=== PATIENT | male | born 1945 | race African-American/Black ===

== ENCOUNTER 2016-08-31 04:18 | Emergency (ER) | payer OTHER ==
[~2016-08-31] VITALS: Ht 170.2 cm; Wt 68.0 kg
[~2016-08-31 04:18] MED LIST: TYLE3 PO; Z.0.UNKNOWN
[2016-08-31 04:21] VITALS: BP 102/67; PULSE 95; RESP 16; TEMP 98.6; O2SAT 95
[2016-08-31 04:43] VITALS: BP 120/71; PULSE 79; RESP 18; O2SAT 95
[2016-08-31] MEDS ORDERED: SODIUM CHLOR 0.9% 1000 ML INJ 1,000 ML IV ONE ×2 (05:00→05:15)
[2016-08-31] MEDS ORDERED: ONDANSETRON HCL 4 MG/2 ML VIAL IV ONE (05:00)
--- NOTE | 2016-08-31 05:04 | PD ---
HPI Chief Complaint: GI Complaint Time Seen by Provider: 04:49 (Nghia Flores MD) Time Seen by Provider: 08:00 (Silvia Negrete MD) Travel History International Travel<30 days: No Contact w/Intl Traveler<30days: No Traveled to known affect area: No (Nghia Flores MD) History of Present Illness HPI This 71-year-old man who presents to the emergency department claiming of nausea vomiting and dehydration. reports over the past couple days she's gotten worsening nausea, anorexia, not really eating. He's also had some cough cold symptoms. He denies any fevers or chills but his states that he had significant sweats and was having a blanket on despite of being hot outside. Patient denies any abdominal pain. No history of abdominal surgeries. No urinary complaints. He does have prostate problems and urinates frequently and sometimes has incontinence. His lites had a little bit of GI upset but not as severe as he does. No unusual or undercooked foods, no recent travel, no recent antibiotics. (Nghia Flores MD) History Past Medical History Narrative Medical Hypertension BPH (Nghia Flores MD) Social History Alcohol Use: Yes (DAILY) Tobacco Use: No (Nghia Flores MD) Allergies-Medications (Allergen,Severity, Reaction): Coded Allergies: No Known Allergies (Verified , 08/31/16) Reported Meds & Prescriptions Reported Meds & Active Scripts Active Tylenol-Codeine #3 (Acetaminophen-Codeine) 300-30 mg Tab 1 Tab PO Q6HR PRN Zofran (Ondansetron HCl) 4 Mg Tab 4 Mg PO Q8HR PRN Cipro (Ciprofloxacin HCl) 500 Mg Tab 500 Mg PO BID 7 Days (Silvia Negrete MD) Review of Systems Except as stated in HPI: all other systems reviewed are Neg (Nghia Flores MD ) Physical Exam Narrative GENERAL: Well-appearing 71-year-old man, no acute distress. SKIN: Focused skin assessment warm/dry. Decreased skin turgor. HEAD: Atraumatic. Normocephalic. EYES: Pupils equal and round. No scleral icterus. No injection or drainage. ENT: No nasal bleeding or discharge. Mucous membranes are little bit dry. NECK: Trachea midline. No JVD. CARDIOVASCULAR: Regular rate and rhythm. No murmur appreciated. RESPIRATORY: No accessory muscle use. Clear to auscultation. Breath sounds equal bilaterally. GASTROINTESTINAL: Abdomen soft with full bit no tenderness or obvious distention. MUSCULOSKELETAL: No obvious deformities. No edema. NEUROLOGICAL: Awake and alert. No obvious cranial nerve deficits. Motor grossly within normal limits. Normal speech. (Nghia Flores MD) Data Data Last Documented VS Vital Signs Date Time Temp Pulse Resp B/P Pulse Ox O2 Delivery O2 Flow Rate FiO2 08/31/16 07:11 74 116/69 96 Nasal Cannula 2 08/31/16 06:15 18 08/31/16 04:21 98.6 (Silvia Negrete MD) Orders Complete Blood Count With Diff (08/31/16 04:59) Comprehensive Metabolic Panel (08/31/16 04:59) Urinalysis - C+S If Indicated (08/31/16 04:59) Iv Access Insert/Monitor (08/31/16 04:59) Sodium Chlor 0.9% 1000 Ml Inj (Ns 1000 M (08/31/16 05:00) Ondansetron Inj (Zofran Inj) (08/31/16 05:00) Chest, Single Ap (08/31/16 ) Sodium Chlor 0.9% 1000 Ml Inj (Ns 1000 M (08/31/16 05:15) Us Abdomen Gallbladder (08/31/16 ) Urine Culture (08/31/16 08:19) Ceftriaxone Inj (Rocephin Inj) (08/31/16 08:30) Potassium Chlor 10 Meq Premix (Kcl 10 Me (08/31/16 09:00) Potassium Chloride (Kcl) (08/31/16 09:00) (Silvia Negrete MD) Labs Laboratory Tests Test 08/31/16 08/31/16 05:00 05:45 White Blood Count 2.9 TH/MM3 Red Blood Count 3.68 MIL/MM3 Hemoglobin 13.2 GM/DL Hematocrit 38.1 % Mean Corpuscular Volume 103.5 FL Mean Corpuscular Hemoglobin 35.9 PG Mean Corpuscular Hemoglobin 34.7 % Concent Red Cell Distribution Width 13.5 % Platelet Count 100 TH/MM3 Mean Platelet Volume 9.4 FL Neutrophils (%) (Auto) 32.8 % Lymphocytes (%) (Auto) 47.3 % Monocytes (%) (Auto) 19.5 % Eosinophils (%) (Auto) 0.1 % Basophils (%) (Auto) 0.3 % Neutrophils # (Auto) 0.9 TH/MM3 Lymphocytes # (Auto) 1.3 TH/MM3 Monocytes # (Auto) 0.6 TH/MM3 Eosinophils # (Auto) 0.0 TH/MM3 Basophils # (Auto) 0.0 TH/MM3 CBC Comment AUTO DIFF Differential Total Cells 100 Counted Neutrophils % (Manual) 34 % Band Neutrophils % 1 % Lymphocytes % 54 % Monocytes % 11 % Neutrophils # (Manual) 1.0 TH/MM3 Nucleated Red Blood Cells 1 /100 WBC Differential Comment FINAL DIFF MANUAL Platelet Estimate LOW Platelet Morphology Comment NORMAL Red Cell Morphology Comment NORMAL Sodium Level 132 MEQ/L Potassium Level 3.0 MEQ/L Chloride Level 93 MEQ/L Carbon Dioxide Level 24.6 MEQ/L Anion Gap 14 MEQ/L Blood Urea Nitrogen 10 MG/DL Creatinine 1.10 MG/DL Estimat Glomerular Filtration 80 ML/MIN Rate Random Glucose 108 MG/DL Calcium Level 8.1 MG/DL Total Bilirubin 0.8 MG/DL Aspartate Amino Transf 99 U/L (AST/SGOT) Alanine Aminotransferase 71 U/L (ALT/SGPT) Alkaline Phosphatase 66 U/L Total Protein 8.3 GM/DL Albumin 3.5 GM/DL Urine Color YELLOW Urine Turbidity CLEAR Urine pH 5.5 Urine Specific [place] 1.003 Urine Protein NEG mg/dL Urine Glucose (UA) NEG mg/dL Urine Ketones NEG mg/dL Urine Occult Blood NEG Urine Nitrite NEG Urine Bilirubin NEG Urine Urobilinogen LESS THAN 2.0 MG/DL Urine Leukocyte Esterase MOD Urine RBC LESS THAN 1 /hpf Urine WBC 6 /hpf Urine Squamous Epithelial <1 /hpf Cells Urine Bacteria OCC /hpf Urine Mucus FEW /lpf Microscopic Urinalysis Comment CULT NOT INDICATED (Siliva Negrete MD) Labs Laboratory Tests Test 08/31/16 05:00 White Blood Count 2.9 TH/MM3 Red Blood Count 3.68 MIL/MM3 Hemoglobin 13.2 GM/DL Hematocrit 38.1 % Mean Corpuscular Volume 103.5 FL Mean Corpuscular Hemoglobin 35.9 PG Mean Corpuscular Hemoglobin 34.7 % Concent Red Cell Distribution Width 13.5 % Platelet Count 100 TH/MM3 Mean Platelet Volume 9.4 FL Neutrophils (%) (Auto) 32.8 % Lymphocytes (%) (Auto) 47.3 % Monocytes (%) (Auto) 19.5 % Eosinophils (%) (Auto) 0.1 % Basophils (%) (Auto) 0.3 % Neutrophils # (Auto) 0.9 TH/MM3 Lymphocytes # (Auto) 1.3 TH/MM3 Monocytes # (Auto) 0.6 TH/MM3 Eosinophils # (Auto) 0.0 TH/MM3 Basophils # (Auto) 0.0 TH/MM3 CBC Comment AUTO DIFF Sodium Level 132 MEQ/L Potassium Level 3.0 MEQ/L Chloride Level 93 MEQ/L Carbon Dioxide Level 24.6 MEQ/L Anion Gap 14 MEQ/L Blood Urea Nitrogen 10 MG/DL Creatinine 1.10 MG/DL Estimat Glomerular Filtration 80 ML/MIN Rate Random Glucose 108 MG/DL Calcium Level 8.1 MG/DL Total Bilirubin 0.8 MG/DL Aspartate Amino Transf 99 U/L (AST/SGOT) Alanine Aminotransferase 71 U/L (ALT/SGPT) Alkaline Phosphatase 66 U/L Total Protein 8.3 GM/DL Albumin 3.5 GM/DL (Nghia Flores MD) [facility] Medical Decision Making Medical Screen Exam Complete: Yes Emergency Medical Condition: Yes Interpretation(s) LABS: CBC remarkable for mildly low white count, CT results bit elevated, monocytes % is elevated CMP is unremarkable UA Chest x-ray: No acute cardiopulmonary disease. Differential Diagnosis Dehydration, anorexia, infection, pneumonia, UTI, other Narrative Course Medical decision-making INITIAL: 71-year-old man presents emergent or decreased appetite nausea vomiting ongoing for couple days. He looks a little bit dehydrated. He has no abdominal pain. A little bit a cough or cold symptoms could suggest pneumonia. He also has prostate problems or could suggest UTI. We'll check labs, urine, chest x-ray, IV fluids, Zofran, reassess. (Nghia Flores MD) Medical Screen Exam Complete: No Emergency Medical Condition: No Medical Record Reviewed: No Interpretation(s) Chest x-ray no acute disease to sound the gallbladder shows a small stone but no gallbladder wall thickening or free fluid consistent with acute cholecystitis White cell count 2.9 his white cell count from March retrieved from the [facility] was 3.7 today absolute neutrophil count was 0.9 which is low UA consistent with infection with positive leukocytes and white cells Differential Diagnosis Differential diagnoses cholelithiasis dehydration nausea and vomiting urinary tract infection history of prostate cancer neutropenia Narrative Course This is a 71-year-old male patient with a past medical history of prostate cancer who presents with a 3 to four-day history of nausea and vomiting and decreased by mouth intake. Patient denies pain. States patient did not have a fever but she noted chills. No urinary symptoms reported. The patient did sign out from Dr. Fenton to review the ultrasound report and disposition patient. Ultrasound revealed a small gallstone but no signs of acute cholecystitis. White cell count 2.9. Absolute neutrophil count 0.9 which is low. Recent tree most recent WBC from [place] which was 3.7 done in March. UA consistent with infection with positive leukocytes and white cells. Patient appears comfortable but in light of the decreased absolute neutrophil count and urine consistent with infection and recent history of nausea and vomiting along with low potassium for which she received a K Jarred and by mouth potassium ordered to keep patient overnight for observation due to drop in wbc uti and gallstones in this cancer that is from the [place] where he cannot see his oncologist in the next 48 hours patient but patient refused. \ will discharge patient home on zofran tylenol # 3 and ciprofloxacin ( will avoid augmentin due to presentation of vomiting and augmentin causes GI distress ) patient signed out AMA. understands reasons to return. (Silvia Negrete MD) Diagnosis Primary Impression: Urinary tract infection Additional Impressions: Dehydration Cholelithiases History of prostate cancer Patient Instructions: Dehydration (DC), Gallstones (DC), General Instructions, Urinary Tract Infection in Men (DC) Additional Instructions: Stay well hydrated Avoid alcohol use Finish antibiotic Take Zofran as needed for nausea Take Tylenol No. 3 as needed for pain Follow-up with your oncologist at the [facility] call today for follow-up appointment Also follow-up with Gen. surgery for further evaluation of gallstones and to discuss the elective removal of the gallbladder if needed Also follow with her primary care provider in one week Return of symptoms persist or worsen Med/Other Pt SpecificInfo: Prescription(s) given (Silvia Negrete MD) Scripts Acetaminophen-Codeine (Tylenol-Codeine #3)300-30 mg Tab1 Tab PO Q6HR PRN (PAIN) #15 TAB Ref 0 Prov:Silvia Negrete MD 08/31/16 Ondansetron (Zofran)4 Mg Tab4 Mg PO Q8HR PRN (NAUSEA OR VOMITING) #15 TAB Ref 0 Prov:Silvia Negrete MD 08/31/16 Ciprofloxacin (Cipro)500 Mg [id number] Mg PO BID 7 Days Ref 0 Prov:Silvia Negrete MD 08/31/16 Disposition: 07 AGAINST MEDICAL ADVICE Condition: Stable Nghia Flores MD Aug 31, 2016 05:04 Silvia Negrete MD Aug 31, 2016 10:28
[2016-08-31 05:20] LABS: AUTOMATED NEUTROPHIL # 0.9 TH/MM3 (1.8-7.7); BASOPHIL % 0.3 % (0.0-2.0); EOSINOPHIL % 0.1 % (0.0-4.0); HEMATOCRIT 38.1 % (39.0-51.0); LYMPH % 47.3 % (9.0-44.0); LYMPHOCYTE # 1.3 TH/MM3 (1.0-4.8); MEAN CELL VOLUME 103.5 FL (80.0-100.0); MEAN CORPUSCULAR HEMOGLOBIN 35.9 PG (27.0-34.0); MEAN CORPUSCULAR HGB CONC 34.7 % (32.0-36.0); MONO % 19.5 % (0.0-8.0); NEUT % 32.8 % (16.0-70.0); PLATELET COUNT 100 TH/MM3 (150-450); RED BLOOD COUNT 3.68 MIL/MM3 (4.50-5.90); RED CELL DISTRIBUTION WIDTH 13.5 % (11.6-17.2); WHITE BLOOD COUNT 2.9 TH/MM3 (4.0-11.0)
[2016-08-31 05:29] LABS: HEMO FLAGS AUTO DIFF
[2016-08-31 05:47] LABS: ALKALINE PHOSPHATASE 66 U/L (45-117); ALT (GPT) 71 U/L (12-78); TOTAL BILIRUBIN ADULT 0.8 MG/DL (0.2-1.0)
[2016-08-31 05:48] LABS: ANION GAP 14 MEQ/L (5-15); AST (GOT) 99 U/L (15-37); BICARBONATE 24.6 MEQ/L (21.0-32.0); BLOOD UREA NITROGEN 10 MG/DL (7-18); CHLORIDE 93 MEQ/L (98-107); GLOMERULAR FILTRATION RATE 80 ML/MIN (>89); SODIUM (NA) 132 MEQ/L (136-145)
--- NOTE | 2016-08-31 05:50 | RADRPT ---
EXAM DATE/TIME: 08/31/2016 05:30 [facility] COMPARISON: No previous studies available for comparison. INDICATIONS : Fever. MEDICAL HISTORY : None. SURGICAL HISTORY : None. ENCOUNTER: Initial ACUITY: 1 day PAIN SCORE: 0/10 LOCATION: Bilateral chest FINDINGS: A single view of the chest demonstrates the lungs to be symmetrically aerated without evidence of mas s, infiltrate or effusion. The cardiomediastinal contours are unremarkable. Osseous structures are intact. CONCLUSION: No evidence of acute cardiopulmonary disease. Dave Grajeda MD on August 31, 2016 at 5:48 Board Certified Radiologist. This report was verified electronically.
[2016-08-31 06:07] LABS: BACTERIA, URINE OCC /hpf; BLOOD, URINE NEG (NEG); COMMENT (UR) CULT NOT INDICATED; CULTURE IF INDICATED CULT NOT INDICATED; GLUCOSE,URINE NEG (NEG); KETONE, URINE NEG (NEG); MUCUS URINE FEW /lpf (OCC); NITRITE,URINE NEG (NEG); PH, URINE 5.5 (5.0-8.5); SQUAMOUS EPITHELIAL CELL URINE <1 /hpf (0-5); URINE COLOR YELLOW (YELLW/STRAW)
[2016-08-31 06:07] LABS: BANDS 1 % (0-6); CORRECTED NUCLEATED RBC 1 /100 WBC (0-0); POLYS (SEG NEUTROPHILS) 34 % (16-70); SCAN/DIFF FINAL DIFF MANUAL; WBC DIFF SAMPLE 100
[2016-08-31 06:08] LABS: PLATELET ESTIMATE SMEAR LOW (NORMAL); PLATELET MORPHOLOGY NORMAL (NORMAL)
[2016-08-31 06:15] VITALS: BP 112/70; PULSE 74; RESP 18; O2SAT 94
[2016-08-31 07:11] VITALS: BP 116/69; PULSE 74; O2SAT 96
[2016-08-31] MEDS ORDERED: cefTRIAXone INJ 1,000 MG in SODIUM CHLORIDE 0.9% INJ 100 ML IV ONE (08:30)
[2016-08-31] MEDS ORDERED: POTASSIUM CHLOR 10 MEQ PREMIX 100 ML IV ONE (09:00)
[2016-08-31] MEDS ORDERED: POTASSIUM CHLORIDE 10 MEQ CONTROLLED RELEASE TAB PO ONE (09:00)
--- NOTE | 2016-08-31 09:01 | RADRPT ---
EXAM DATE/TIME: 08/31/2016 07:35 [facility] COMPARISON: No previous studies available for comparison. INDICATIONS : Right upper quadrant pain. Nausea and vomiting. MEDICAL HISTORY : Hypertension. Right upper quadrant pain. Nausea and vomiting. PTSD. Prostate cancer. ETOH use miguel angel ly. SURGICAL HISTORY : Prostate biopsy. ENCOUNTER: Initial ACUITY: 2 days PAIN SCORE: 3/10 LOCATION: Right upper quadrant MEASUREMENTS: LIVER: 17.2 cm length COMMON DUCT: 5 mm RIGHT KIDNEY: 11.1 x 5.3 x 6.5 cm FINDINGS: LIVER: The echotexture the liver is somewhat heterogeneous and dense suggesting fatty infiltration. There is no intrahepatic bile or ductal dilation. No mass is identified. COMMON DUCT: No intraluminal mass or stone visualized. GALLBLADDER: The gallbladder is decompressed. There is a single stone in the dependent portion of the gallbladder. There is no pericholecystic fluid. PANCREAS: The visualized portions are within normal limits. RIGHT KIDNEY: The examination demonstrates a 3.5 x 3.3 cm simple cyst within the midpole of the right kidney. There is a 2.0 x 1.8 cm simple cyst in the lower pole. There is no hydronephrosis. No stones are seen. CONCLUSION: 1. Heterogeneous, increased echogenicity of the liver suggesting fatty infiltration. 2. There is a single 4 mm gallstone the gallbladder. The gallbladder wall somewhat prominent however the gallbladder is decompressed and this likely accounts for this finding. There is no pericholecysti c fluid. Rafael Denny MD on August 31, 2016 at 8:57 Board Certified Radiologist. This report was verified electronically.
[2016-08-31] MEDS ORDERED: ZOFR4TAB PO (10:27)
[2016-08-31] MEDS ORDERED: CIPR-9 PO (10:27)
[2016-08-31] MEDS ORDERED: TYLETAB34 PO (10:28)
== END 2016-08-31 10:55 | disposition left against medical advice (07) ==
LOC: NEPC 04:18
DX: N39.0 Urinary tract infection, site not specified (principal); E86.0 Dehydration; K80.20 Calculus of gallbladder without cholecystitis without obstruction; B96.20 Unspecified Escherichia coli [E. coli] as the cause of diseases classified elsewhere; R05 Cough; I10 Essential (primary) hypertension; Z85.46 Personal history of malignant neoplasm of prostate; Z87.438 Personal history of other diseases of male genital organs; Z53.29 Procedure and treatment not carried out because of patient's decision for other reasons
CPT/HCPCS: 71010; 76705; 80053; 81001; 85007; 85027; 87077; 87086; 87186; 96361; 96365; 96375; 99285; J0696; J2405; J7030